=== PATIENT | female | born 1960 | race Hispanic/Latino ===

== ENCOUNTER 2019-03-09 04:44 | Emergency (ER) | payer OTHER, SELFPAY ==
[2019-03-09] MEDS ORDERED: METHYLPREDNISOLONE 125 MG INJ ONE (05:01)
[2019-03-09] MEDS ORDERED: DIPHENHYDRAMINE 25 MG TAB/CAP ONE (05:01)
[2019-03-09] MEDS ORDERED: FAMOTIDINE 20 MG TAB ONE (05:02)
--- NOTE | 2019-03-09 05:16 | EDPHYS ---
Physician Documentation [facility] Name: Blank Dover Age: 58 yrs Sex: Female : 1960 Arrival Date: 03/09/2019 Time: 04:52 Bed 20 Private MD: ED Physician Oscar García HPI: 03/09 05:17 This 58 yrs old Female presents to ER via Ambulatory with complaints of Rash, tw4 Allergic Reaction. 05:17 The rash is located on the body diffusely. The rash can be described as urticarial. tw4 Onset: The symptoms/episode began/occurred today. Associated signs and symptoms: Pertinent positives: itching, Pertinent negatives: burning sensation, difficulty breathing, swelling of lips, swelling of throat, swelling of tongue. The patient has not experienced similar symptoms in the past. Historical: - Allergies: 05:00 No Known Allergies; rr5 - Home Meds: 05:00 None [Active]; rr5 - PMHx: 05:00 None; rr5 - PSHx: 05:00 None; rr5 - Immunization history:: Adult Immunizations up to date. - Social history:: Smoking status: Patient uses tobacco products, 4 sticks per day. - Ebola Screening: : Patient negative for fever greater than or equal to 101.5 degrees Fahrenheit, and additional compatible Ebola Virus Disease symptoms Patient denies exposure to infectious person Patient denies travel to an Ebola-affected area in the 21 days before illness onset. ROS: 05:17 Constitutional: Negative for fever, chills, and weight loss, Eyes: Negative for injury, tw4 pain, redness, and discharge, Cardiovascular: Negative for chest pain, palpitations, and edema, Respiratory: Negative for shortness of breath, cough, wheezing, and pleuritic chest pain, Abdomen/GI: Negative for abdominal pain, nausea, vomiting, diarrhea, and constipation, Back: Negative for injury and pain, MS/Extremity: Negative for injury and deformity. 05:17 Skin: Positive for rash. Exam: 05:17 Constitutional: This is a well developed, well nourished patient who is awake, alert, tw4 and in no acute distress. Head/Face: Normocephalic, atraumatic. Chest/axilla: Normal chest wall appearance and motion. Nontender with no deformity. No lesions are appreciated. Cardiovascular: Regular rate and rhythm with a normal S1 and S2. No gallops, murmurs, or rubs. Normal PMI, no JVD. No pulse deficits. Respiratory: Lungs have equal breath sounds bilaterally, clear to auscultation and percussion. No rales, rhonchi or wheezes noted. No increased work of breathing, no retractions or nasal flaring. Abdomen/GI: Soft, non-tender, with normal bowel sounds. No distension or tympany. No guarding or rebound. No evidence of tenderness throughout. 05:17 Skin: urticaria. Vital Signs: 05:00 BP 168 / 97; Pulse 76; Resp 20; Temp 98.4; Pulse Ox 99% ; Weight 69.85 kg; Height 5 ft. rr5 4 in. (162.56 cm); Pain 0/10; 05:20 BP 145 / 70; Pulse 75; Resp 17; Pulse Ox 99% on R/A; rr5 05:51 BP 124 / 64; Pulse 63; Resp 15; Pulse Ox 100% ; Pain 0/10; rr5 05:00 Body Mass Index 26.43 (69.85 kg, 162.56 cm) rr5 MDM: 05:06 Patient medically screened. tw4 05:17 Differential diagnosis: allergic reaction. Data reviewed: vital signs, nurses notes. tw4 Data interpreted: Pulse oximetry: Interpretation: normal. Counseling: I had a detailed discussion with the patient and/or guardian regarding: the historical points, exam findings, and any diagnostic results supporting the discharge/admit diagnosis. Special discussion: I discussed with the patient/guardian in detail that at this point there is no indication for admission to the hospital. It is understood, however, that if the symptoms persist or worsen the patient needs to return immediately for re-evaluation. Administered Medications: 05:05 Drug: Pepcid 20 mg Route: PO; rr5 05:53 Follow up: Response: No adverse reaction; Marked relief of symptoms rr5 05:05 Drug: Benadryl 25 mg Route: PO; rr5 05:52 Follow up: Response: No adverse reaction; Marked relief of symptoms rr5 05:06 Drug: SOLU-Medrol 125 mg Route: IM; Site: right gluteus; rr5 05:52 Follow up: Response: No adverse reaction; Marked relief of symptoms rr5 Disposition: 03/09/19 05:15 Discharged to Home. Impression: Allergic reaction. - Condition is Stable. - Discharge Instructions: Allergies, [id number]. - Prescriptions for Medrol (Vidal) 4 mg Oral Tablets, Dose Pack - take 1 tablet by ORAL route as directed - follow package instructions; 1 packet. - Medication Reconciliation Form, Thank You Letter, Antibiotic Education, Prescription Opioid Use, Work release form form. - Follow up: Private Physician; When: Upon discharge from the Emergency Department; Reason: If symptoms return, Recheck today's complaints, Continuance of care. - Problem is new. - Symptoms have improved. Signatures: Oscar García MD MD tw4 Jarad Barron RN RN rr5 Corrections: (The following items were deleted from the chart) 05:54 05:15 03/09/2019 05:15 Discharged to Home. Impression: Allergic reaction. Condition is rr5 Stable. Forms are Medication Reconciliation Form, Thank You Letter, Antibiotic Education, Prescription Opioid Use. Follow up: Private Physician; When: Upon discharge from the Emergency Department; Reason: If symptoms return, Recheck today's complaints, Continuance of care. Problem is new. Symptoms have improved. tw4
--- NOTE | 2019-03-09 05:16 | ER ---
Nurse's Notes [facility] Name: Blank Dover Age: 58 yrs Sex: Female : 1960 Arrival Date: 03/09/2019 Time: 04:52 Bed 20 Private MD: Diagnosis: Allergic reaction Presentation: 03/09 05:00 Presenting complaint: Patient states: around 11 pm my hands got itchy then started to rr5 have rashes all over my body and face. I did not eat any unusual food yesterday. 05:00 Transition of care: patient was not received from another setting of care. Onset: The rr5 symptoms/episode began/occurred suddenly, last night, 6 hour(s) ago. Anaphylaxis evaluation, no signs or symptoms of anaphylaxis were noted. Onset of symptoms was March 08, 2019 at 23:00. Risk Assessment: Do you want to hurt yourself or someone else? Patient reports no desire to harm self or others. Initial Sepsis Screen: Does the patient meet any 2 criteria? No. Patient's initial sepsis screen is negative. Does the patient have a suspected source of infection? No. Patient's initial sepsis screen is negative. Care prior to arrival: None. 05:00 Method Of Arrival: Ambulatory rr5 05:00 Acuity: TORI 3 rr5 Historical: - Allergies: 05:00 No Known Allergies; rr5 - Home Meds: 05:00 None [Active]; rr5 - PMHx: 05:00 None; rr5 - PSHx: 05:00 None; rr5 - Immunization history:: Adult Immunizations up to date. - Social history:: Smoking status: Patient uses tobacco products, 4 sticks per day. - Ebola Screening: : Patient negative for fever greater than or equal to 101.5 degrees Fahrenheit, and additional compatible Ebola Virus Disease symptoms Patient denies exposure to infectious person Patient denies travel to an Ebola-affected area in the 21 days before illness onset. Screenin:13 Abuse screen: Denies threats or abuse. Denies injuries from another. Nutritional rr5 screening: No deficits noted. Tuberculosis screening: No symptoms or risk factors identified. Fall Risk None identified. Total Atwood Fall Scale indicates No Risk (0-24 pts). Assessment: 05:00 General: Appears in no apparent distress. uncomfortable, Behavior is calm, cooperative, rr5 appropriate for age. 05:00 Pain: Denies pain. Neuro: Level of Consciousness is awake, alert, obeys commands, rr5 Oriented to person, place, time, situation. Cardiovascular: Capillary refill < 3 seconds Patient's skin is warm and dry. Respiratory: Airway is patent Respiratory effort is even, unlabored, Respiratory pattern is regular, symmetrical, Breath sounds are clear bilaterally. GI: No signs and/or symptoms were reported involving the gastrointestinal system. : No signs and/or symptoms were reported regarding the genitourinary system. EENT: No signs and/or symptoms were reported regarding the EENT system. Derm: Rash noted that is itchy, red, raised, urticaria, on head and all over the body Reports burning, itching. Musculoskeletal: No signs and/or symptoms reported regarding the musculoskeletal system. 05:20 Reassessment: Patient appears in no apparent distress at this time. eyes closed rr5 breathing spontaneously on room air. on side lying position. 05:51 Reassessment: Patient appears in no apparent distress at this time. Patient is alert, rr5 oriented x 3, equal unlabored respirations, skin warm/dry/pink. discharge instruction given and explained without complaints made. Patient states feeling better. Patient states symptoms have improved. Vital Signs: 05:00 BP 168 / 97; Pulse 76; Resp 20; Temp 98.4; Pulse Ox 99% ; Weight 69.85 kg; Height 5 ft. rr5 4 in. (162.56 cm); Pain 0/10; 05:20 BP 145 / 70; Pulse 75; Resp 17; Pulse Ox 99% on R/A; rr5 05:51 BP 124 / 64; Pulse 63; Resp 15; Pulse Ox 100% ; Pain 0/10; rr5 05:00 Body Mass Index 26.43 (69.85 kg, 162.56 cm) rr5 ED Course: 04:49 Jarad Barron RN is Primary Nurse. rr5 04:52 Patient arrived in ED. am2 05:00 Arm band placed on. rr5 05:06 Oscar García MD is Attending Physician. tw4 05:08 Triage completed. rr5 05:13 Patient has correct armband on for positive identification. Bed in low position. Call rr5 light in reach. 05:13 No provider procedures requiring assistance completed. rr5 05:53 Patient did not have IV access during this emergency room visit. intact, bleeding rr5 controlled, No redness/swelling at site. Pressure dressing applied. Administered Medications: 05:05 Drug: Pepcid 20 mg Route: PO; rr5 05:53 Follow up: Response: No adverse reaction; Marked relief of symptoms rr5 05:05 Drug: Benadryl 25 mg Route: PO; rr5 05:52 Follow up: Response: No adverse reaction; Marked relief of symptoms rr5 05:06 Drug: SOLU-Medrol 125 mg Route: IM; Site: right gluteus; rr5 05:52 Follow up: Response: No adverse reaction; Marked relief of symptoms rr5 Outcome: 05:15 Discharge ordered by . tw4 05:53 Discharged to home ambulatory. rr5 05:53 Condition: stable 05:53 Discharge instructions given to patient, Instructed on discharge instructions, follow up and referral plans. medication usage, Demonstrated understanding of instructions, follow-up care, medications, Prescriptions given X 1. 05:54 Patient left the ED. rr5 Signatures: Michelle Montelongo Terrence, MD MD tw4 Jarad Barron, RN RN rr5
== END 2019-03-09 05:54 | disposition home or self-care (01) ==
LOC: ER 04:44
DX: R21 Rash and other nonspecific skin eruption (principal); T78.40XA Allergy, unspecified, initial encounter
CPT/HCPCS: 96372; 99283; J2930

== ENCOUNTER 2020-04-30 06:04 | Emergency (ER) | payer SELFPAY ==
[2020-04-30] MEDS ORDERED: DIAZEPAM 5 MG TABLET ONE (07:27)
[2020-04-30] MEDS ORDERED: MORPHINE 2 MG/ML SYR ONE (07:28)
[2020-04-30] MEDS ORDERED: KETOROLAC 30 MG/ML INJ ONE (07:28)
[2020-04-30] MEDS ORDERED: NA CHLORIDE 0.9% 500 ML ONE (07:29)
[2020-04-30] MEDS ORDERED: ONDANSETRON 4 MG/2 ML VIAL ONE (07:29)
[2020-04-30] MEDS ORDERED: dexAMETHasone 4 MG/ML VIAL ONE (07:29)
[2020-04-30 07:30] LABS: Absolute Lymphocytes (CBC) 2.4 K/uL (0.7-4.9); Basophils % 0.5 % (0-1.3); Hematocrit 39.7 % (36.0-45.0); Lymphocytes % 35.7 % (15.3-44.8); RBC Red Blood Cell Count 4.09 M/uL (3.86-4.86)
[2020-04-30 07:50] LABS: ALT/SGPT 30 U/L (12-78); AST/SGOT 21 U/L (15-37); Albumin 3.6 g/dL (3.4-5.0); Alkaline Phosphatase 110 U/L (45-117); BUN Blood Urea Nitrogen 26 mg/dL (7-18); Bicarbonate 23 mmol/L (21-32); Bilirubin Total 0.2 mg/dL (0.2-1.0); Glucose Level 98 mg/dL (74-106); Potassium 3.8 mmol/L (3.5-5.1); Protein, Total 7.2 g/dL (6.4-8.2); Sodium Level 141 mmol/L (136-145); Troponin I < 0.02 ng/mL (0.0-0.045)
--- NOTE | 2020-04-30 07:50 | RAD REPORT ---
EXAM DESCRIPTION: CT - C Spine Wo Con - 04/30/2020 7:31 am CLINICAL HISTORY: PAIN Neck injury and pain with radiculopathy COMPARISON: No comparisons FINDINGS: The cervical vertebral body heights are maintained. Spondylosis in the form of posterior o steophyte noted at multiple levels, most significant at C3-4 and C4-5. Mild facet hypertrophy is pres ent involving the lower levels of cervical spine. No evidence of acute cervical spine fracture or subluxation. The odontoid is normal. Prevertebral soft tissues are normal in thickness. IMPRESSION: Negative for acute cervical spine abnormality. Mild multilevel cervical spondylosis. All CT scans are performed using dose optimization technique as appropriate and may include automated exposure control or mA/KV adjustment according to patient size.
--- NOTE | 2020-04-30 07:57 | EDPHYS ---
Physician Documentation [facility] Name: Blank Dover Age: 59 yrs Sex: Female : 1960 Arrival Date: 04/30/2020 Time: 06:07 Bed 8 Private MD: KILEY Physician Renan Martinez HPI: 04/30 06:58 This 59 yrs old Female presents to ER via Ambulatory with complaints of Neck alicia Pain, >24Hrs Old, Shoulder Pain, Arm Pain, Tingly. 06:58 The patient or guardian complains of decreased range of motion, pain, that is acute. alicia The symptoms are located at the C2, C3, C4, C5, C6 and C7. Onset: The symptoms/episode began/occurred 2 day(s) ago. Context: The problem was sustained at home, The neck injury/problem resulted from from unknown cause. Associated signs and symptoms: The patient has no apparent associated signs or symptoms. The pain radiates to the left arm. Modifying factors: The symptoms are alleviated by ice packs, remaining still. Severity of symptoms: At their worst the symptoms were moderate, in the emergency department the symptoms are unchanged. The patient has not experienced similar symptoms in the past. Historical: - Allergies: 06:27 No Known Allergies; rr5 - Home Meds: 06:27 None [Active]; rr5 - PMHx: 06:27 None; rr5 - PSHx: 06:27 None; rr5 - Immunization history:: Adult Immunizations up to date. - Social history:: Smoking status: unknown Patient uses alcohol, occasionally. Patient/guardian denies using street drugs. - Family history:: not pertinent. ROS: 06:58 Constitutional: Negative for fever, chills, and weight loss, Eyes: Negative for injury, alicia pain, redness, and discharge, ENT: Negative for injury, pain, and discharge, Cardiovascular: Negative for chest pain, palpitations, and edema, Respiratory: Negative for shortness of breath, cough, wheezing, and pleuritic chest pain, Abdomen/GI: Negative for abdominal pain, nausea, vomiting, diarrhea, and constipation, Back: Negative for injury and pain, : Negative for injury, bleeding, discharge, and swelling, MS/Extremity: Negative for injury and deformity, Skin: Negative for injury, rash, and discoloration, Neuro: Negative for headache, weakness, numbness, tingling, and seizure, Psych: Negative for depression, anxiety, suicide ideation, homicidal ideation, and hallucinations, Allergy/Immunology: Negative for hives, rash, and allergies, Endocrine: Negative for neck swelling, polydipsia, polyuria, polyphagia, and marked weight changes, Hematologic/Lymphatic: Negative for swollen nodes, abnormal bleeding, and unusual bruising. 06:58 Neck: Positive for pain with movement, pain at rest. Exam: 06:58 Constitutional: This is a well developed, well nourished patient who is awake, alert, alicia and in no acute distress. Head/Face: Normocephalic, atraumatic. Eyes: Pupils equal round and reactive to light, extra-ocular motions intact. Lids and lashes normal. Conjunctiva and sclera are non-icteric and not injected. Cornea within normal limits. Periorbital areas with no swelling, redness, or edema. ENT: Nares patent. No nasal discharge, no septal abnormalities noted. Tympanic membranes are normal and external auditory canals are clear. Oropharynx with no redness, swelling, or masses, exudates, or evidence of obstruction, uvula midline. Mucous membranes moist. Chest/axilla: Normal chest wall appearance and motion. Nontender with no deformity. No lesions are appreciated. Cardiovascular: Regular rate and rhythm with a normal S1 and S2. No gallops, murmurs, or rubs. Normal PMI, no JVD. No pulse deficits. Respiratory: Lungs have equal breath sounds bilaterally, clear to auscultation and percussion. No rales, rhonchi or wheezes noted. No increased work of breathing, no retractions or nasal flaring. Abdomen/GI: Soft, non-tender, with normal bowel sounds. No distension or tympany. No guarding or rebound. No evidence of tenderness throughout. Back: No spinal tenderness. No costovertebral tenderness. Full range of motion. Female : Normal external genitalia. Neuro: Awake and alert, GCS 15, oriented to person, place, time, and situation. Cranial nerves II-XII grossly intact. Motor strength 5/5 in all extremities. Sensory grossly intact. Cerebellar exam normal. Normal gait. Psych: Awake, alert, with orientation to person, place and time. Behavior, mood, and affect are within normal limits. 06:58 Neck: External neck: is normal, no acute changes, C-spine: Thyroid: appears normal, Trachea: is midline with no obvious abnormalities, ROM/movement: is normal, no acute changes, limited range of motion, is not appreciated, Meningeal signs: are not present, Kernig's sign is negative, Brudzinski's sign is negative. 08:24 ECG was reviewed by the Attending Physician. [facility] Vital Signs: 06:23 BP 146 / 83; Pulse 75; Resp 16; Temp 97.8; Pulse Ox 98% ; Weight 74.84 kg; Height 5 ft. rr5 4 in. (162.56 cm); Pain 10/10; 07:27 BP 128 / 73; Pulse 66; Resp 17; Pulse Ox 99% ; Pain 10/10; jl7 08:10 BP 130 / 89; Pulse 65; Resp 17; Pulse Ox 97% ; jl7 06:23 Body Mass Index 28.32 (74.84 kg, 162.56 cm) rr5 MDM: 06:19 Patient medically screened. [facility] 06:58 Differential diagnosis: Cervical Raiculopathy cervical strain. Data reviewed: vital [facility] signs, nurses notes. Data interpreted: monitor worker: rate is 75 beats/min, rhythm is regular. Test interpretation: by ED physician or midlevel provider: ECG, plain radiologic studies. Counseling: I had a detailed discussion with the patient and/or guardian regarding: the historical points, exam findings, and any diagnostic results supporting the discharge/admit diagnosis, lab results, radiology results, the need for outpatient follow up, for definitive care, a family practitioner. Medication response: Zofran markedly relieved the patient's nausea. 04/30 06:57 Order name: CBC with Diff; Complete Time: 07:57 [facility] 04/30 06:57 Order name: Comprehensive Metabolic Panel; Complete Time: 07:57 [facility] 04/30 06:57 Order name: Troponin I; Complete Time: 07:57 [facility] 04/30 06:57 Order name: CT C Spine; Complete Time: 07:57 [facility] 04/30 06:58 Order name: Shoulder Left (2 View) XRAY [facility] 04/30 06:58 Order name: EKG; Complete Time: 06:58 [facility] 04/30 07:04 Order name: Sling; Complete Time: 08:54 [facility] EC:24 Rate is 63 beats/min. Rhythm is regular. QRS Yeso is Normal. SD interval is normal. QRS alicia interval is normal. QT interval is normal. No Q waves. T waves are Normal. No ST changes noted. Clinical impression: Normal ECG and No evidence of ischemia. Interpreted by me. Reviewed by me. Administered Medications: 07:20 Drug: Valium 5 mg Route: PO; jl7 08:09 Follow up: Response: No adverse reaction; Pain is decreased jl7 07:45 Drug: NS 0.9% 500 ml Route: IV; Rate: bolus; Site: right antecubital; jl7 08:35 Follow up: Response: No adverse reaction; IV Status: Completed infusion; IV Intake: jl7 500ml 07:45 Drug: Zofran (Ondansetron) 4 mg Route: IVP; Site: right antecubital; jl7 08:10 Follow up: Response: No adverse reaction jl7 07:47 Drug: morphine 2 mg Route: IVP; Site: right antecubital; jl7 08:10 Follow up: Response: No adverse reaction; Pain is decreased jl7 07:50 Drug: Decadron - Dexamethasone 10 mg Route: IVP; Site: right antecubital; jl7 08:09 Follow up: Response: No adverse reaction jl7 07:53 Drug: TORadol 30 mg Route: IVP; Site: right antecubital; jl7 08:09 Follow up: Response: No adverse reaction; Pain is decreased jl7 Disposition: 04/30/20 07:57 Discharged to Home. Impression: Radiculopathy, cervical region, Strain of muscle, fascia and tendon at neck level, Spondylolysis, cervical region. - Condition is Stable. - Discharge Instructions: Cervical Radiculopathy, Muscle Strain, Cervical Sprain, [id number], Cervical Radiculopathy, [id number], Radicular Pain. - Prescriptions for Ibuprofen 600 mg Oral Tablet - take 1 tablet by ORAL route every 8 hours As needed take with food; 21 tablet. Tylenol- Codeine #3 300-30 mg Oral Tablet - take 2 tablets by ORAL route every 6 hours As needed; 24 tablet. Valium 2 mg Oral Tablet - take 1 tablet by ORAL route every 8 hours As needed; 20 tablet. Medrol (Vidal) 4 mg Oral Tablets, Dose Pack - take 1 tablet by ORAL route as directed - follow package instructions; 1 packet. - Medication Reconciliation Form, Thank You Letter, Antibiotic Education, Prescription Opioid Use form. - Follow up: Private Physician; When: 2 - 3 days; Reason: Recheck today's complaints, Continuance of care, Re-evaluation by your physician. Follow up: Israel Haskins MD; When: 2 - 3 days; Reason: Recheck today's complaints, Continuance of care, Re-evaluation by your physician. Follow up: Jp Ariza MD; When: 2 - 3 days; Reason: Recheck today's complaints, Continuance of care, Re-evaluation by your physician. - Problem is new. - Symptoms have improved. Signatures: Dispatcher [employer] EDMS Renan Martinez MD MD cha Leal, Jahala RN RN jl7 Jarad Barron RN RN rr5 Corrections: (The following items were deleted from the chart) 07:58 07:57 04/30/2020 07:57 Discharged to Home. Impression: Radiculopathy, cervical region; alicia Strain of muscle, fascia and tendon at neck level; Spondylolysis, cervical region. Condition is Stable. Discharge Instructions: Cervical Radiculopathy, Muscle Strain, Cervical Sprain, [id number], Cervical Radiculopathy, [id number], Radicular Pain. Prescriptions for Ibuprofen 600 mg Oral Tablet - take 1 tablet by ORAL route every 8 hours As needed take with food; 21 tablet, Tylenol-Codeine #3 300-30 mg Oral Tablet - take 2 tablets by ORAL route every 6 hours As needed; 24 tablet, Valium 2 mg Oral Tablet - take 1 tablet by ORAL route every 8 hours As needed; 20 tablet, Medrol (Vidal) 4 mg Oral Tablets, Dose Pack - take 1 tablet by ORAL route as directed - follow package instructions; 1 packet. and Forms are Medication Reconciliation Form, Thank You Letter, Antibiotic Education, Prescription Opioid Use. Follow up: Private Physician; When: 2 - 3 days; Reason: Recheck today's complaints, Continuance of care, Re-evaluation by your physician. Problem is new. Symptoms have improved. alicia 08:56 07:58 04/30/2020 07:57 Discharged to Home. Impression: Radiculopathy, cervical region; jl7 Strain of muscle, fascia and tendon at neck level; Spondylolysis, cervical region. Condition is Stable. Discharge Instructions: Cervical Radiculopathy, Muscle Strain, Cervical Sprain, [id number], Cervical Radiculopathy, [id number], Radicular Pain. Prescriptions for Ibuprofen 600 mg Oral Tablet - take 1 tablet by ORAL route every 8 hours As needed take with food; 21 tablet, Tylenol-Codeine #3 300-30 mg Oral Tablet - take 2 tablets by ORAL route every 6 hours As needed; 24 tablet, Valium 2 mg Oral Tablet - take 1 tablet by ORAL route every 8 hours As needed; 20 tablet, Medrol (Vidal) 4 mg Oral Tablets, Dose Pack - take 1 tablet by ORAL route as directed - follow package instructions; 1 packet. and Forms are Medication Reconciliation Form, Thank You Letter, Antibiotic Education, Prescription Opioid Use. Follow up: Private Physician; When: 2 - 3 days; Reason: Recheck today's complaints, Continuance of care, Re-evaluation by your physician. Follow up: Israel Haskins; When: 2 - 3 days; Reason: Recheck today's complaints, Continuance of care, Re-evaluation by your physician. Follow up: Jp Ariza; When: 2 - 3 days; Reason: Recheck today's complaints, Continuance of care, Re-evaluation by your physician. Problem is new. Symptoms have improved. alicia
--- NOTE | 2020-04-30 07:57 | ER ---
Nurse's Notes [facility] Name: Blank Dover Age: 59 yrs Sex: Female : 1960 Arrival Date: 04/30/2020 Time: 06:07 Bed 8 Private MD: Diagnosis: Radiculopathy, cervical region;Strain of muscle, fascia and tendon at neck level;Spondylolysis, cervical region Presentation: 04/30 06:23 Chief complaint: Patient states: left side of my neck is hurting going to my left arm rr5 it is like a tingling feeling started 2 weeks ago. I went to chiropractor, put some cold pads and took tylenol it did not worked. denies weakness, denies chest pain. Coronavirus screen: Client denies travel out of the [place] in the last 14 days. At this time, the client does not indicate any symptoms associated with coronavirus-19. Ebola Screen: Patient negative for fever greater than or equal to 101.5 degrees Fahrenheit, and additional compatible Ebola Virus Disease symptoms Patient denies exposure to infectious person. Patient denies travel to an Ebola-affected area in the 21 days before illness onset. Acute neurological deficit: none identified. Initial Sepsis Screen: Does the patient meet any 2 criteria? No. Patient's initial sepsis screen is negative. Does the patient have a suspected source of infection? No. Patient's initial sepsis screen is negative. Risk Assessment: Do you want to hurt yourself or someone else? Patient reports no desire to harm self or others. Onset of symptoms was March 2020. 06:23 Method Of Arrival: Ambulatory rr5 06:23 Acuity: TORI 4 rr5 Historical: - Allergies: 06:27 No Known Allergies; rr5 - Home Meds: 06:27 None [Active]; rr5 - PMHx: 06:27 None; rr5 - PSHx: 06:27 None; rr5 - Immunization history:: Adult Immunizations up to date. - Social history:: Smoking status: unknown Patient uses alcohol, occasionally. Patient/guardian denies using street drugs. - Family history:: not pertinent. Screenin:27 Abuse screen: Denies threats or abuse. Denies injuries from another. Nutritional rr5 screening: No deficits noted. Tuberculosis screening: No symptoms or risk factors identified. Fall Risk None identified. Total Atwood Fall Scale indicates No Risk (0-24 pts). Assessment: 06:27 General: Appears in no apparent distress. uncomfortable, Behavior is calm, cooperative, rr5 appropriate for age. Pain: Complains of pain in left side of the nape Pain radiates to left arm Pain currently is 10 out of 10 on a pain scale. Quality of pain is described as sharp, Pain began gradually, Is continuous. Neuro: Level of Consciousness is awake, alert, obeys commands, Oriented to person, place, time, situation. Cardiovascular: Denies chest pain, Capillary refill < 3 seconds Patient's skin is warm and dry. Respiratory: Airway is patent Respiratory effort is even, unlabored, Respiratory pattern is regular, symmetrical. GI: No signs and/or symptoms were reported involving the gastrointestinal system. : No signs and/or symptoms were reported regarding the genitourinary system. EENT: Derm: Skin is intact, is healthy with good turgor, Skin is dry, Skin temperature is warm. Musculoskeletal: Circulation, motion, and sensation intact. Capillary refill < 3 seconds, Range of motion: limited in left shoulder Reports pain in left side of the nape. 07:27 Reassessment: Patient appears in no apparent distress at this time. No changes from jl7 previously documented assessment. Patient and/or family updated on plan of care and expected duration. Pain level reassessed. Patient is alert, oriented x 3, equal unlabored respirations, skin warm/dry/pink. 08:10 Reassessment: Pt will be discharged once fluids are done infusing. jl7 08:11 Reassessment: Pt has friend at bedside to give the pt a ride home. jl7 Vital Signs: 06:23 BP 146 / 83; Pulse 75; Resp 16; Temp 97.8; Pulse Ox 98% ; Weight 74.84 kg; Height 5 ft. rr5 4 in. (162.56 cm); Pain 10/10; 07:27 BP 128 / 73; Pulse 66; Resp 17; Pulse Ox 99% ; Pain 10/10; jl7 08:10 BP 130 / 89; Pulse 65; Resp 17; Pulse Ox 97% ; jl7 06:23 Body Mass Index 28.32 (74.84 kg, 162.56 cm) rr5 ED Course: 06:07 Patient arrived in ED. bp1 06:13 Barron, Jarad, RN is Primary Nurse. rr5 06:19 Renan Martinez MD is Attending Physician. alicia 06:26 Triage completed. rr5 06:27 Arm band placed on right wrist. rr5 06:27 Patient has correct armband on for positive identification. Placed in gown. Bed in low rr5 position. Call light in reach. Pulse ox on. NIBP on. 07:06 Primary Nurse role handed off by Jarad Barron RN jl7 07:06 Vega Chan RN is Primary Nurse. jl7 07:26 Shoulder Left (2 View) XRAY In Process Unspecified. EDMS 07:27 Initial lab(s) drawn, by nh, sent to lab. Inserted saline lock: 20 gauge in right jl7 antecubital area, using aseptic technique. Blood collected. 07:31 CT C Spine In Process Unspecified. EDMS 07:57 Israel Haskins MD is Referral Physician. alicia 07:58 Jp Ariza MD is Referral Physician. alicia 08:35 No provider procedures requiring assistance completed. IV discontinued, intact, jl7 bleeding controlled, No redness/swelling at site. Pressure dressing applied. 08:35 EKG done, by ED staff, reviewed by Renan Martinez MD. jl7 Administered Medications: 07:20 Drug: Valium 5 mg Route: PO; jl7 08:09 Follow up: Response: No adverse reaction; Pain is decreased jl7 07:45 Drug: NS 0.9% 500 ml Route: IV; Rate: bolus; Site: right antecubital; jl7 08:35 Follow up: Response: No adverse reaction; IV Status: Completed infusion; IV Intake: jl7 500ml 07:45 Drug: Zofran (Ondansetron) 4 mg Route: IVP; Site: right antecubital; jl7 08:10 Follow up: Response: No adverse reaction jl7 07:47 Drug: morphine 2 mg Route: IVP; Site: right antecubital; jl7 08:10 Follow up: Response: No adverse reaction; Pain is decreased jl7 07:50 Drug: Decadron - Dexamethasone 10 mg Route: IVP; Site: right antecubital; jl7 08:09 Follow up: Response: No adverse reaction jl7 07:53 Drug: TORadol 30 mg Route: IVP; Site: right antecubital; jl7 08:09 Follow up: Response: No adverse reaction; Pain is decreased jl7 Intake: 08:35 IV: 500ml; Total: 500ml. jl7 Outcome: 07:57 Discharge ordered by . alicia 08:35 Discharged to home ambulatory, with friend. jl7 08:35 Condition: stable 08:35 Discharge instructions given to patient, friend, Instructed on discharge instructions, follow up and referral plans. medication usage, Demonstrated understanding of instructions, follow-up care, medications, Prescriptions given X 4. 08:45 Patient left the ED. jl7 Signatures: Dispatcher [employer] EDMS Renan Martinez MD MD cha Leal, Jahala RN RN jl7 Jarad Barron RN RN rr5 Gabriella Iyer [facility] Corrections: (The following items were deleted from the chart) 08:57 08:56 Patient left the ED. jl7 jl7
[2020-04-30 09:06] VITALS: TEMP 97.8
[2020-04-30 09:08] VITALS: BP 130/89; O2SAT 97
--- NOTE | 2020-04-30 11:53 | RAD REPORT ---
EXAM DESCRIPTION: RAD - Shoulder Left 2 View - 04/30/2020 7:26 am CLINICAL HISTORY: PAIN COMPARISON: No comparisons FINDINGS: Mild degenerative changes are noted. No fracture or dislocation seen.
== END 2020-04-30 08:56 | disposition home or self-care (01) ==
LOC: ER 06:04
DX: S16.1XXA Strain of muscle, fascia and tendon at neck level, initial encounter (principal); M54.12 Radiculopathy, cervical region; M47.892 Other spondylosis, cervical region
CPT/HCPCS: 36415; 72125; 80053; 84484; 85025; 93005; 96361; 96374; 96375; 99284; J1100; J2270; J2405; J7040